=== PATIENT | male | born 1985 | race Two or more races ===

== ENCOUNTER 2023-05-01 17:44 | Emergency (ER) | payer BC ==
[~2023-05-01] VITALS: Ht 160 cm; Wt 63.5 kg
[2023-05-01] MEDS ORDERED: KETOROLAC TROMETHAMINE 30 MG INJ IVP ONE (22:45)
[2023-05-01] MEDS ORDERED: IV NS 1000 ML 1,000 ML IV ONE (22:45)
[2023-05-01 22:54] LABS: BASOPHILS # (AUTO) 0.1 K/UL (0.0-0.2); BASOPHILS % (AUTO) 0.6 % (0.0-2.0); EOSINOPHILS # (AUTO) 0.2 K/uL (0.0-0.7); EOSINOPHILS % (AUTO) 1.8 % (0.0-7.0); HEMATOCRIT 44.7 % (36.7-47.1); HEMOGLOBIN 15.1 g/dL (12.5-16.3); LYMPHOCYTES # (AUTO) 2.4 K/uL (0.8-4.8); LYMPHOCYTES % (AUTO) 22.3 % (20.5-51.5); MEAN CORPUSCULAR HEMOGLOBIN 28.4 uug (23.8-33.4); MEAN CORPUSCULAR HGB CONC 34 g/dL (32.5-36.3); MONOCYTES # (AUTO) 0.9 K/uL (0.1-1.30); MONOCYTES % (AUTO) 8.6 % (0.0-11.0); NEUTROPHILS # (AUTO) 7.3 K/uL (1.8-8.9); NEUTROPHILS % (AUTO) 66.7 % (38.5-71.5); PLATELET COUNT (AUTO) 219 K/uL (152-348); RED BLOOD CELL COUNT(AUTO) 5.32 MIL/uL (4.06-5.63); RED CELL DISTRIBUTION WIDTH 13.8 % (12.1-16.2); WHITE BLOOD COUNT (AUTO) 10.9 K/uL (3.6-10.2)
[2023-05-01] MEDS ORDERED: KETOROLAC TROMETHAMINE 30 MG INJ ONE (22:54)
[2023-05-01 22:58] LABS: DIFFERENTIAL COMMENT 1
[2023-05-01 23:07] LABS: CALCIUM 8.5 mg/dL (8.5-10.1); POTASSIUM 3.7 mmol/L (3.5-5.1)
[2023-05-01] MEDS ORDERED: IOHEXOL 300MG/ML 100 ML INFUS..BTL ONE (23:26)
[2023-05-01] MEDS ORDERED: IV NORMAL SALINE 250 ML IV ONE (23:27)
[2023-05-01] MEDS ORDERED: SWABABLE VALVE TRANSFER SET EA MC ONE (23:27)
[2023-05-01] MEDS ORDERED: TDAP DIPH,PERTUSS,TET VAC/PF 0.5 ML DISP.SYRIN IM ONE ×2 (23:30→23:38)
[2023-05-02 06:28] VITALS: BP 119/67; TEMP 98; O2SAT 98
== END 2023-05-02 02:40 | disposition home or self-care (01) ==
LOC: ER 17:47
DX: R07.89 Other chest pain (principal); R10.32 Left lower quadrant pain; R51.9 Headache, unspecified; J45.909 Unspecified asthma, uncomplicated; Z88.8 Allergy status to other drugs, medicaments and biological substances; V43.52XA Car driver injured in collision with other type car in traffic accident, initial encounter; Y93.89 Activity, other specified; Y92.410 Unspecified street and highway as the place of occurrence of the external cause; Y99.8 Other external cause status
CPT/HCPCS: 99285; 70450; 96374; 96361; 80048; 85025; 36415; 71260; 74177; 90715; 90471; J1885; Q9967; J7040; A4663